=== PATIENT | female | born 1990 | race Caucasian/White ===

== ENCOUNTER 2017-07-12 21:20 | Inpatient (IN) | payer OTHER ==
[~2017-07-12] VITALS: Ht 157.5 cm; Wt 81.3 kg
[2017-07-12] MEDS ORDERED: MISOPROSTOL 200 MCG TABLET ONE (21:59)
[2017-07-12] MEDS ORDERED: OXYTOCIN 30U/ 0.9% NaCL 500ML 500 ML IV ONE (21:59)
[2017-07-12] MEDS ORDERED: LIDOCAINE 1%, 20ML ONE (21:59)
[2017-07-12] MEDS: D5%-LACTATED RINGERS 1,000 ML IV SCH (21:59)
[2017-07-12] MEDS ORDERED: NEWBORN KIT ONE (21:59)
[2017-07-12] MEDS ORDERED: OXYTOCIN 30U/ 0.9% NaCL 500ML 500 ML ONE (21:59)
[2017-07-12] MEDS ORDERED: ONDANSETRON 2MG/ML, 2ML IVPush PRN (22:00)
[2017-07-12] MEDS ORDERED: TERBUTALINE 1 MG/ML, 1ML IVPush PRN (22:00)
[2017-07-12] MEDS ORDERED: FENTANYL PF 100 MCG/2ML IV PRN (22:00)
[2017-07-12] MEDS ORDERED: FENTANYL PF 100 MCG/2ML IVPush PRN (22:00)
[2017-07-12] MEDS ORDERED: PREN1TAB60 PO (22:16)
[2017-07-12 22:33] LABS: HEMATOCRIT 37.9 % (34.6-47.8); HEMOGLOBIN 12.9 g/dL (11.7-16.4); WHITE BLOOD COUNT 12.1 x10^3/uL (3.4-10)
[2017-07-12 22:44] LABS: ASPARTATE AMINO TRANSFERASE 19 U/L (15-37); BLOOD UREA NITROGEN 9 mg/dL (7-18)
[2017-07-12] MEDS: LACTATED RINGERS 1,000 ML IV SCH (23:04)
[2017-07-13] MEDS ORDERED: FENTANYL/BUPIV./NS/PF 250 ML EPIDCONT ONE (00:06)
[2017-07-13] MEDS: LACTATED RINGERS 1,000 ML IV SCH ×3 (00:16→08:45)
[2017-07-13] MEDS ORDERED: FENTANYL/BUPIV./NS/PF 250 ML EPIDCONT SCH (00:45)
[2017-07-13] MEDS ORDERED: LACTATED RINGERS 1,000 ML IVBOLUS PRN (01:00)
[2017-07-13] MEDS ORDERED: OXYTOCIN 30U/ 0.9% NaCL 500ML 500 ML IV PRN (05:17)
[2017-07-13] MEDS: D5%-LACTATED RINGERS 1,000 ML IV SCH (05:59)
[2017-07-13] MEDS ORDERED: OXYTOCIN 30U/ 0.9% NaCL 500ML 500 ML IV SCH (06:38)
[2017-07-13] MEDS ORDERED: MAGNESIUM HYDROXIDE 8%, 30ML UDC PO PRN (07:00)
[2017-07-13] MEDS ORDERED: CARBOPROST TROMETHAMINE 250 MCG/ML, 1ML IM PRN (07:00)
[2017-07-13] MEDS ORDERED: BISACODYL 10 MG SUPP PR PRN (07:00)
[2017-07-13] MEDS ORDERED: DIPH,PERTUSS(ACELL),TET VAC/PF NC IM-VACC PRN (07:00)
[2017-07-13] MEDS ORDERED: MEASLES,MUMPS&RUBELLA VACC/PF 0.5 ML SQ PRN (07:00)
[2017-07-13] MEDS ORDERED: ONDANSETRON 2MG/ML, 2ML IV PRN (07:00)
[2017-07-13] MEDS ORDERED: CALCIUM CARBONATE 500 MG TAB.CHEW PO PRN (07:00)
[2017-07-13] MEDS ORDERED: ACETAMINOPHEN 325 MG TABLET PO PRN ×2 (07:00)
[2017-07-13] MEDS ORDERED: MISOPROSTOL 200 MCG TABLET PR PRN (07:00)
[2017-07-13] MEDS ORDERED: METHYLERGONOVINE 0.2 MG/ML IM PRN (07:00)
[2017-07-13] MEDS ORDERED: GLYCERIN ADULT SUPP PR PRN (07:00)
[2017-07-13] MEDS ORDERED: OXYcodone/APAP 5/325MG TABLET PO PRN ×2 (07:00)
[2017-07-13 08:30] VITALS: BP 120/74
[2017-07-13 11:50] VITALS: BP 130/87
[2017-07-13] MEDS: DOCUSATE 100 MG CAPSULE PO PRN ×2 (12:54→20:07)
[2017-07-13] MEDS: PRENATAL VIT/IRON/FA 1 EACH TABLET PO SCH (12:55)
[2017-07-13] MEDS: IBUPROFEN 600 MG TABLET PO PRN ×2 (12:55→20:07)
[2017-07-13 15:40] LABS: HEMATOCRIT 37.5 % (34.6-47.8); HEMOGLOBIN 12.8 g/dL (11.7-16.4); WHITE BLOOD COUNT 20.4 x10^3/uL (3.4-10)
[2017-07-13 16:00] VITALS: BP 121/82
[2017-07-13 20:00] VITALS: BP 122/79
[2017-07-14 00:15] VITALS: BP 114/76
[2017-07-14 04:25] VITALS: BP 112/67
[2017-07-14] MEDS: IBUPROFEN 600 MG TABLET PO PRN ×2 (05:03→13:06)
[2017-07-14] MEDS: PRENATAL VIT/IRON/FA 1 EACH TABLET PO SCH (08:23)
[2017-07-14] MEDS: DOCUSATE 100 MG CAPSULE PO PRN (08:23)
[2017-07-14 08:40] VITALS: BP 120/75
[2017-07-14] MEDS ORDERED: IBUP-1222 PO (13:18)
[2017-07-14] MEDS ORDERED: OXYC-302 PO (13:19)
== END 2017-07-14 14:25 | disposition home or self-care (01) | DRG 775 ==
LOC: LDOP 21:20 → LDIP 22:11 → 2NW 07-13 08:23
PROVIDERS: ADMIT Obstetrics & Gynecology; ATTEND Obstetrics & Gynecology
PROC: 0KQM0ZZ Repair Perineum Muscle, Open Approach (ICD-10-PCS; principal; 2017-07-13)
PROC: 10E0XZZ Delivery of Products of Conception, External Approach (ICD-10-PCS; 2017-07-13)
DX: O69.81X0 Labor and delivery complicated by cord around neck, without compression, not applicable or unspecified (principal); O77.0 Labor and delivery complicated by meconium in amniotic fluid; Z37.0 Single live birth; O70.1 Second degree perineal laceration during delivery; Z3A.38 38 weeks gestation of pregnancy
CPT/HCPCS: 36415; 80053; 85025; 86850; 86900; 89060; 99285; J2590; J7120; Q0114